=== PATIENT | female | born 1970 | race Caucasian/White ===

== ENCOUNTER 2023-02-02 12:20 | Emergency (ER) | payer OTHER, SELFPAY ==
--- NOTE | ~2023-02-02 | XR_ITS ---
XR chest 2V DATE: 02/02/2023 12:44 INDICATION: Cough and wheezing for 2 weeks. Left-sided chest pain. TECHNIQUE: 2 views COMPARISON: None FINDINGS: Normal heart size. No hilar or mediastinal enlargement. No pulmonary infiltrate or consolid ation, pleural effusion or pulmonary vascular congestion or pneumothorax. IMPRESSION: No active cardiopulmonary disease Reviewed, dictated and finalized at location A.
[2023-02-02 12:28] VITALS: BP 104/66; PULSE 80; RESP 20; TEMP 36.7; O2SAT 99
--- NOTE | 2023-02-02 12:34 | ED.URI ---
HPI - URI/Sore Throat General Chief Complaint: Upper Respiratory Infection Stated Complaint: cough w/ pulled lower chest muscle Time Seen by Provider: 02/02/23 12:34 Source: patient and RN notes reviewed History of Present Illness HPI Narrative: Patient is a 52-year-old female presents to urgent care with complaints of a congested cough for the last 2 weeks. Patient states that she has been using Robitussin [id number]. States that she saw her respiratory care specialist for her follow-up on PVCs. Patient states that he heard the wheezing and put her on albuterol inhaler once per day. Patient states it has not helped and the cough seems to have gotten worse. Patient denies any fevers or history of bronchitis, asthma or pneumonia. No acute distress noted. Patient aware of the plan of care. Some parts of this dictation were generated by voice recognition software and may contain typographical and/or grammatical inaccuracies. Related Data Home Medications Medication Instructions Recorded Confirmed albuterol sulfate 90 mcg/actuation 1 puff inhalation DIRECTED 02/02/23 02/02/23 aerosol inhaler Allergies Allergy/AdvReac Type Severity Reaction Status Date / Time No Known Allergies Allergy Verified 02/02/23 12:36 Review of Systems Review of Systems: CONSTITUTIONAL: Denies fever, chills, or sweats. EYES: Denies visual changes, redness, or discharge. ENT: Denies rhinorrhea, congestion, sore throat, or otalgia. CARDIOVASCULAR: Denies chest pain, palpitations, or edema. RESPIRATORY: Reports persistent cough with intermittent dyspnea GASTROINTESTINAL: Denies abdominal pain, nausea, vomiting, or diarrhea. GENITOURINARY: Denies dysuria or hematuria. SKIN: Denies rash or itching. MUSCULOSKELETAL: Denies back pain, joint pain, or myalgia. NEUROLOGIC: Denies headache, numbness, or weakness. All other systems reviewed are negative, except as documented in HPI. PMFSH Comments At the time of my signature, I reviewed and agree with the nursing past medical, surgical, social, and family history. There is no relevant family history pertinent to the patient complaint. Exam Narrative: GENERAL: This is a well-nourished, well-developed patient, in no apparent distress. HEAD: normocephalic, atraumatic. EYES: PERRL. Sclera clear/white. Vision is grossly intact. EARS: External ears normal, auditory canals clear and without drainage, TMs normal without perforation. Hearing grossly intact. NOSE: External nose normal with no obvious nasal discharge, nares without redness, no rhinorrhea. THROAT: Mucous membranes moist, moderate postnasal drainage NECK: Neck supple, non-tender without lymphadenopathy CARDIOVASCULAR: Regular rate and rhythm RESPIRATORY: Coarse inspiratory and expiratory wheezes throughout SKIN: warm, intact with no suspicious lesions or rash, good texture and turgor. NEURO: awake, alert, and oriented to person, pl Course Course Level of Care: Express Care Visit Vital Signs Vital signs: Vital Signs Temperature 98.0 F 02/02/23 12:28 Pulse Rate 80 02/02/23 12:28 Respiratory Rate 20 02/02/23 12:28 Blood Pressure 104/66 02/02/23 12:28 Pulse Oximetry 99 02/02/23 12:28 Oxygen Delivery Room Air 02/02/23 12:28 Temperature 98.0 F 02/02/23 12:28 Pulse Rate 80 02/02/23 12:28 Respiratory Rate 20 02/02/23 12:28 Blood Pressure 104/66 02/02/23 12:28 Pulse Oximetry 99 02/02/23 12:28 Oxygen Delivery Room Air 02/02/23 12:28 Reviewed MDM - URI/Sore Throat MDM Narrative Medical decision making narrative: Reviewed x-ray results with the patient. Chest x-ray was negative for any abnormality or pneumonia. Advised patient to complete the steroid regimen and antibiotic as prescribed. Be sure to eat and drink with medication. Would recommend Mucinex, without Sudafed for cough during the day. Use the Tessalon Perles at night. Do not sleep with a fan or the windows open. Use a humidifier
== END 2023-02-02 13:15 | disposition home or self-care (01) ==
PROVIDERS: Emergency Provider Nurse Practitioner Family; PCP Physician Assistant
DX: J40 Bronchitis, not specified as acute or chronic (principal)
CPT/HCPCS: 71046; 99203; G0463